=== PATIENT | male | born 1945 | race Caucasian/White ===

== ENCOUNTER 2017-06-19 08:06 | Emergency (ER) | payer MEDICARE, OTHER ==
[~2017-06-19] VITALS: Ht 177.8 cm; Wt 79.4 kg
[2017-06-19 08:11] VITALS: BP 136/84
[2017-06-19] MEDS ORDERED: AUGMENTIN250 MG/51 ORAL (08:16)
--- NOTE | 2017-06-19 08:48 | Emergency Room Report ---
History of Present Illness General Chief Complaint: General Complaint Source: Patient Present Illness HPI Patient presents with possible infection of his foot. He states that there is a wound that's between his fourth and fifth toe on the right-hand side which has been treated at [facility] at [place]. He states that one of the hospital treatments involved popping "the blister". He was given Augmentin and feels that this helped him. In addition to that he was given antifungal cream. He's been using this intermittently and infrequently. He also has Neosporin. His tetanus is less than 10 years and he denies diabetes. He's afraid of losing his foot due to the infection. No fevers, chills, red streaks, calf pain, edema, hemoptysis or cough. Pain rated 8/10, but feels this is more due to anxiety. Aching, localized to foot. The patient has some psychiatric history. He states that somebody had to force him to take phenothiazines. He states he is allergic to those at this time. He denies any suicidal or homicidal ideation. He also states that " levofloxacin will cause my heart to stop". The patient wants a refill of the Augmentin. He cannot swallow pills. Allergies: Coded Allergies: PHENOTHIAZINES (Verified Allergy, Intermediate, 09/28/14) Patient History Past Medical History: see triage record, seizures, psych hx Social History: Denies: smoking - former, drug use Social History Narrative works at [employer] Reviewed Nursing Documentation: PMH: Agreed; PSxH: Agreed Nursing Documentation-PMH Hx Seizures: Yes - Compulsive Seizure, last seizure in 1996 Review of Systems All Other Systems: negative except mentioned in HPI Physical Exam Vital Signs Date Time Temp Pulse Resp B/P (MAP) Pulse Ox O2 Delivery O2 Flow Rate FiO2 06/19/17 08:11 97.8 84 14 136/84 97 Room Air 97.9 Sp02 EP Interpretation: reviewed, normal General Appearance: well appearing, no apparent distress, other - slightly dishevelled Head: normocephalic, atraumatic Eyes: bilateral eye normal inspection, bilateral eye PERRL ENT: hearing grossly normal, normal voice, moist mucus membranes - poor dentition Neck: full range of motion, supple Respiratory: chest non-tender, lungs clear, normal breath sounds, no respiratory distress, speaking full sentences Cardiovascular #1: regular rate, rhythm Cardiovascular #2: 2+ radial (R), 2+ dorsalis pedis (R) Gastrointestinal: normal inspection, scaphoid Musculoskeletal: back normal, gait/station normal, normal range of motion, no calf tenderness, other - cornified skin between 4th and 5th toes on R, minimal erytema without fluctuance Neurologic: alert, motor strength/tone normal, normal gait, grossly normal Psychiatric: no suicidal/homicidal ideation, anxious - with perseveration Skin: other - see M/S Medical Decision Making Diagnostic Impression: Primary Impression: Tinea pedis Qualified Codes: B35.3 - Tinea pedis Additional Impression: Cellulitis Qualified Codes: L03.115 - Cellulitis of right lower limb ER Course Patient has evidence of tinea pedis. There is also minimal erythema of the toe. There is no fluctuance. The patient will be treated with antifungal's and also topical antibiotics. He will also be given Bactrim. Augmentin would be ineffective against any skin organisms in that area. I attempted to re-assure patient. Discussed local care and treatment plan. The patient is stable for outpatient observation and treatment Last Vital Signs Date Time Temp Pulse Resp B/P (MAP) Pulse Ox O2 Delivery O2 Flow Rate FiO2 06/19/17 09:10 97.8 69 14 136/84 97 Room Air 208.0 Status: improved Disposition: HOME, SELF-CARE Condition: Improved Scripts Acetaminophen Children's* (TYLENOL CHILDREN'S *) 160 Mg/5 Ml Oral.susp 650 MG ORAL Q4H PRN for For Pain, #240 ML Prov: Lokesh Jc M.D. 06/19/17 Sulfamethoxazole/Trimethoprim Susp* (BACTRIM SUSP*) 473 Ml Oral.susp 20 ML ORAL TWICE A DAY for 7 Days, #280 ML Prov: Lokesh Jc M.D. 06/19/17 Lokesh Jc M.D. Jun 19, 2017 08:48
[2017-06-19] MEDS ORDERED: SULFAMETHOXAZO473 ML ORAL (08:53)
[2017-06-19] MEDS ORDERED: CHILDREN'S160 MG/56 ORAL (08:53)
[2017-06-19] MEDS ORDERED: Acetaminophen Soln 160mg/5ml ORAL ONE (09:00)
[2017-06-19 09:10] VITALS: BP 136/84
== END 2017-06-19 09:10 | disposition home or self-care (01) ==
LOC: EMR 08:47
DX: B35.3 Tinea pedis (principal); L03.115 Cellulitis of right lower limb; Z88.8 Allergy status to other drugs, medicaments and biological substances; Z87.891 Personal history of nicotine dependence
CPT/HCPCS: 99283

== ENCOUNTER 2017-06-20 09:17 | Emergency (ER) | payer MEDICARE, OTHER ==
[~2017-06-20] VITALS: Ht 177.8 cm; Wt 79.4 kg
[~2017-06-20 09:17] MED LIST: AUGMENTIN250 MG/51 ORAL; CHILDREN'S160 MG/56 ORAL; SULFAMETHOXAZO473 ML ORAL
[2017-06-20 09:29] VITALS: BP 130/81
[2017-06-20 09:58] VITALS: BP 130/81
--- NOTE | 2017-06-20 10:23 | Emergency Room Report ---
History of Present Illness General Chief Complaint: Pain Source: Patient Present Illness HPI Patient sense with complaints of skin tag in between the fourth and fifth digits on the right foot Denies any fevers or chills Initially denied any pain in that area Denies any discharge Patient has previous history of blister formation in that area Denies any fall or trauma Allergies: Coded Allergies: PHENOTHIAZINES (Verified Allergy, Intermediate, 09/28/14) Patient History Past Medical History: see triage record Pertinent Family History: none Reviewed Nursing Documentation: PMH: Agreed; PSxH: Agreed Nursing Documentation-PMH Hx Seizures: Yes - Compulsive Seizure, last seizure in 1996 Review of Systems All Other Systems: negative except mentioned in HPI Physical Exam Vital Signs Date Time Temp Pulse Resp B/P (MAP) Pulse Ox O2 Delivery O2 Flow Rate FiO2 06/20/17 09:29 97.9 81 16 130/81 94 Room Air 97.9 Sp02 EP Interpretation: reviewed, normal General Appearance: no apparent distress Head: normocephalic, atraumatic Eyes: bilateral eye PERRL, bilateral eye EOMI ENT: hearing grossly normal, normal pharynx Neck: full range of motion, supple Respiratory: lungs clear Musculoskeletal: other - Evidence of what appears to have been a blister that has now decreased in between the right fourth and fifth toe no fluctuance. No other erythema. Neurologic: alert, oriented x3 Psychiatric: anxious Skin: other - As above Lymphatic: no adenopathy Medical Decision Making Diagnostic Impression: Primary Impression: Tinea pedis ER Course Looking at the records patient was also here yesterday was prescribed antifungal medication asking the patient regarding this reports that he did not have a chance to get that medication yet He is requesting the skin tag to be removed Patient appeared to have some mild anxiousness, and I did ask regarding psychiatric history patient reports that he sees a psychiatrist on a regular basis and is being treated without medication Patient came upset that I asked regarding medical history specifically psychiatric history and at this time reports that he does not want to be further seen Patient was instructed that the medication he was prescribed yesterday would be appropriate And that close outpatient follow-up will be the best approach Last Vital Signs Date Time Temp Pulse Resp B/P (MAP) Pulse Ox O2 Delivery O2 Flow Rate FiO2 06/20/17 09:58 97.9 94 16 130/81 99 06/20/17 09:58 Room Air Status: unchanged Disposition: HOME, SELF-CARE Condition: Stable Referrals: NOT CHOSEN IPA/MD,REFERRING (PCP) Patient Instructions: Athlete's Foot, [id number] Additional Instructions: Patient is provided with the discharge instructions notified to follow up with primary doctor in the next 2-3 days otherwise return to the er with any worsening symptoms. Please note that this report is being documented using DRAGON technology. This can lead to erroneous entry secondary to incorrect interpretation by the dictating instrument. Nasir Noguera DO Jun 20, 2017 10:23
== END 2017-06-20 10:30 | disposition home or self-care (01) ==
LOC: EMR 10:00
DX: B35.3 Tinea pedis (principal)
CPT/HCPCS: 99283